=== PATIENT | male | born 1995 | race African-American/Black ===

== ENCOUNTER 2020-01-18 02:40 | Emergency (ER) | payer SELFPAY ==
[~2020-01-18] VITALS: Ht 180.3 cm; Wt 87.1 kg
[~2020-01-18 02:40] MED LIST: AMOX-358 PO
[2020-01-18] MEDS ORDERED: ceFAZolin INJECTION 1,000 MG in WATER (STERILE) FOR INJECTION 10 ML IV ONE (03:00)
[2020-01-18] MEDS ORDERED: TETANUS,DIPTH,PERTUSS P/F (BOOSTRIX) 0.5 ML VIAL IM ONE (03:00)
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
[2020-01-18 03:04] LABS: HEMOGLOBIN 16.4 g/dL (13.3-17.7); MEAN PLATELET VOLUME 8.8 fL (9.0-12.2); WHITE BLOOD COUNT 9.6 10^3/uL (4.3-11.0)
[2020-01-18 03:11] LABS: ALBUMIN 4.5 GM/DL (3.2-4.5); CHLORIDE 105 MMOL/L (98-107); POTASSIUM 3.4 MMOL/L (3.6-5.0); SODIUM 142 MMOL/L (135-145)
[2020-01-18 03:12] LABS: CALCIUM 8.6 MG/DL (8.5-10.1)
[2020-01-18 03:13] LABS: GLUCOSE 105 MG/DL (70-105)
[2020-01-18 03:14] LABS: CARBON DIOXIDE 21 MMOL/L (21-32); TOTAL PROTEIN 7.4 GM/DL (6.4-8.2)
[2020-01-18 03:15] LABS: BILIRUBIN,TOTAL 0.3 MG/DL (0.1-1.0)
[2020-01-18 03:17] LABS: ALKALINE PHOSPHATASE 70 U/L (40-136); GFR ESTIMATED > 60
[2020-01-18 03:18] LABS: BUN/CREATININE RATIO 6
[2020-01-18 03:19] LABS: BILIRUBIN,DIRECT 0.1 MG/DL (0.0-0.3); BILIRUBIN,INDIRECT 0.2 MG/DL
[2020-01-18 03:20] LABS: ALANINE AMINOTRANSFERASE 25 U/L (0-55)
[2020-01-18] MEDS ORDERED: LACTATED RINGERS 1,000 ML IV ONE (03:30)
[2020-01-18 04:34] VITALS: BP 131/72
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
== END 2020-01-18 04:34 | disposition home or self-care (01) ==
LOC: EDUNIT# 02:40 → ER 02:45
DX: S01.01XA Laceration without foreign body of scalp, initial encounter (principal); S60.512A Abrasion of left hand, initial encounter; R40.2410 Glasgow coma scale score 13-15, unspecified time; F17.210 Nicotine dependence, cigarettes, uncomplicated; Z23 Encounter for immunization; Y04.0XXA Assault by unarmed brawl or fight, initial encounter
CPT/HCPCS: 70450; 71045; 72125; 73110; 80048; 80076; 85027; 93041; 99284; G0480; 36415; 80320; 90715